=== PATIENT | female | born 1990 | race Caucasian/White ===

== ENCOUNTER 2018-05-26 18:24 | Emergency (ER) | payer OTHER ==
--- NOTE | 2018-05-26 18:53 | EDPHY ---
Addendum entered and electronically signed by Bari Comer MD 05/26/18 19: 58: EKG: Complete interpretation has been separately recorded in the [facility] archive. Summary impression: Sinus rhythm, rate 76 PHYSICIAN DOCUMENTATION: The patient was evaluated and managed by the Physician Addiction Counselor. My co- signature indicates that I have reviewed this chart and I agree with the findings and plan of care as documented. I am the secondary supervising physician. Original Note: H & P Stated Complaint: l sided cp/tightness and sob Time Seen by Provider: 05/26/18 18:45 HPI/ROS: HPI: This is a 28-year-old female who presents with Chief Complaint: l sided cp/tightness and sob Location: Left-sided chest Quality: Pain, tightness, shortness of breath Duration: 2 hr prior to arrival Signs and Symptoms: no shortness of breath at rest, no shortness of breath on exertion, no cough, + chest pain, no palpitations, no lower extremity edema, no wheezing, no orthopnea, no paroxysmal nocturnal dyspnea, no fever, no injury/ trauma, no hemoptysis, no carpal pedal spasms, + bilateral lower leg cramps Timing: Sudden onset, constant Severity: Moderate Context: Patient presents with sudden onset of left-sided chest pain that is nonradiating in nature and associated with shortness of breath. Patient reports that when she takes a deep breath in the pain is worsened. She denies any shortness of breath on exertion. She returned 2 weeks ago from a plane trip to [place]. Last week she noticed some bilateral lower extremity/calf cramping that was intermittent in nature. Denies any currently. She denies any lower extremity edema. Nonsmoker. Father has a history of DVT, PE. Did not receive influenza vaccine this year. Denies fever, cough, upper respiratory symptoms, postnasal drip, sinus pressure, headache. No history of lung disease. Modifying Factors: None Comment: ROS: A comprehensive 10 system review of systems is otherwise negative aside from elements mentioned in the history of present illness. MEDICAL/SURGICAL/SOCIAL HISTORY: Medical history: Ovarian cyst. Does not take any regular medications. Merina IUD Surgical history: Denies Social history: Nonsmoker. CONSTITUTIONAL: Slightly anxious, nontoxic-appearing, adult white female, awake and alert, no obvious distress HEENT: Atraumatic and normocephalic, PERRL, EOMI. Nares patent; no rhinorrhea; no nasal mucosal edema. Tympanic membranes clear. Oropharynx clear, no exudate and moist pink mucosa. Airway patent. No lymphadenopathy. No meningismus. Cardiovascular: Normal S1/S2, regular rate, regular rhythm, without murmur rub or gallop. PULMONARY/CHEST: Symmetrical and nontender. Clear to auscultation bilaterally. Good air movement. No accessory muscle usage. ABDOMEN: Soft, nondistended, nontender, no rebound, no guarding, no peritoneal signs, no masses or organomegaly. No CVAT. EXTREMITIES: 2/2 pulses, strength 5/5, no deformities, no clubbing, no cyanosis or edema. Negative Homans sign. NEUROLOGICAL: no focal neuro deficits. GCS 15. SKIN: Warm and dry, no erythema. no rash. Good capillary refill. Source: Patient Exam Limitations: No limitations - Personal History LMP (Females 10-55): IUD In Place Current Tetanus Diphtheria and Acellular Pertussis (TDAP): Yes - Medical/Surgical History Hx Asthma: Yes Hx Chronic Respiratory Disease: No Hx Diabetes: No Hx Cardiac Disease: No Hx Renal Disease: No Hx Cirrhosis: No Hx Alcoholism: No Hx HIV/AIDS: No Hx Splenectomy or Spleen Trauma: No Other PMH: ovarien cyst - Social History Smoking Status: Never smoked Constitutional: Initial Vital Signs Temperature (C) 36.7 C 05/26/18 18:30 Heart Rate 76 05/26/18 18:30 Respiratory Rate 18 05/26/18 18:30 Blood Pressure 125/78 H 05/26/18 18:30 O2 Sat (%) 99 05/26/18 18:30 O2 Delivery Mode Room Air Allergies/Adverse Reactions: nuts Allergy (Uncoded 12/01/10 17:20) Home Medications: Medication Instructions Recorded MIRENA 05/26/18 Medical Decision Making - Diagnostics Imaging Results: Imaging Impressions Chest X-Ray 05/26/18 19:31 Impression: No significant radiographic abnormality. Specifically, a source for chest pain is not identified. ED Course/Re-evaluation: Vital signs reviewed and stable upon arrival. No hypoxia, respiratory distress. Placed on cardiac care unit nurse. IV access, laboratory studies including D-dimer and EKG ordered EKG my read with attending shows normal sinus rhythm with a rate of 76 beats per minute with flattened T-waves but no acute ischemic changes. 1929: Labs reviewed. No signs of leukocytosis/anemia/platelet dysfunction/YAMEL/ elevated LFTs/electrolyte imbalance//VTE. 1953: Chest x-ray my read shows no opacity, no effusion, no widened mediastinum , no pneumothorax Patient reports that she does suffer from anxiety and would like a referral to a new primary care provider. Patient has no signs of pericarditis, arrhythmias, VTE. She is appropriate for discharge with outpatient follow-up. This patient was seen under the supervision of my secondary supervising physician. I evaluated care for this patient with attending. Discussed this patient with Dr. Comer. Differential Diagnosis: Shortness of breath including but not limited to pulmonary infectious process, COPD, asthma, pulmonary embolus and congestive heart failure. - Data Points Laboratory Results: Laboratory Results 05/26/18 18:44 05/26/18 18:44 05/26/18 05/26/18 05/26/18 18:44 18:44 18:44 WBC RBC Hgb Hct MCV MCH MCHC RDW Plt Count MPV Neut % (Auto) Lymph % (Auto) [place] % (Auto) Eos % (Auto) Baso % (Auto) Nucleat RBC Rel Count Absolute Neuts (auto) Absolute Lymphs (auto) Absolute Monos (auto) Absolute Eos (auto) Absolute Basos (auto) Absolute Nucleated RBC Immature Gran % Immature Gran # D-Dimer < 0.27 ug/mLFEU ug/mLFEU (0.00-0.50) Sodium 140 mEq/L mEq/L (135-145) Potassium 3.9 mEq/L mEq/L (3.5-5.2) Chloride 107 mEq/L mEq/L (97-110) Carbon Dioxide 24 mEq/l mEq/l (22-31) Anion Gap 9 mEq/L mEq/L (6-14) BUN 11 mg/dL mg/dL (7-23) Creatinine 0.8 mg/dL mg/dL (0.6-1.0) Estimated GFR > 60 Glucose 81 mg/dL mg/dL (70-100) Calcium 9.6 mg/dL mg/dL (8.5-10.4) Beta HCG, Qual NEGATIVE 05/26/18 18:44 WBC 8.64 10^3/uL 10^3/uL (3.80-9.50) RBC 4.61 10^6/uL 10^6/uL (4.18-5.33) Hgb 14.4 g/dL g/dL (12.6-16.3) Hct 41.8 % % (38.0-47.0) MCV 90.7 fL fL (81.5-99.8) MCH 31.2 pg pg (27.9-34.1) MCHC 34.4 g/dL g/dL (32.4-36.7) RDW 13.0 % % (11.5-15.2) Plt Count 231 10^3/uL 10^3/uL (150-400) MPV 11.8 fL H fL (8.7-11.7) Neut % (Auto) 51.1 % % (39.3-74.2) Lymph % (Auto) 38.3 % % (15.0-45.0) [place] % (Auto) 7.8 % % (4.5-13.0) Eos % (Auto) 2.0 % % (0.6-7.6) Baso % (Auto) 0.7 % % (0.3-1.7) Nucleat RBC Rel Count 0.0 % % (0.0-0.2) Absolute Neuts (auto) 4.42 10^3/uL 10^3/uL (1.70-6.50) Absolute Lymphs (auto) 3.31 10^3/uL H 10^3/uL (1.00-3.00) Absolute Monos (auto) 0.67 10^3/uL 10^3/uL (0.30-0.80) Absolute Eos (auto) 0.17 10^3/uL 10^3/uL (0.03-0.40) Absolute Basos (auto) 0.06 10^3/uL 10^3/uL (0.02-0.10) Absolute Nucleated RBC 0.00 10^3/uL 10^3/uL (0-0.01) Immature Gran % 0.1 % % (0.0-1.1) Immature Gran # 0.01 10^3/uL 10^3/uL (0.00-0.10) D-Dimer Sodium Potassium Chloride Carbon Dioxide Anion Gap BUN Creatinine Estimated GFR Glucose Calcium Beta HCG, Qual Medications Given: Discontinued Medications Sodium Chloride (Ns) 1,000 mls @ 0 mls/hr IV ONCE ONE; Wide Open PRN Reason: Protocol Stop: 05/26/18 18:55 Last Admin: 05/26/18 19:04 Dose: 1,000 mls Departure - Departure Disposition: Home, Routine, Self-Care Clinical Impression: Atypical chest pain Condition: Good Instructions: Noncardiac Chest Pain (ED) Additional Instructions: Please refrain from caffeine or tobacco use. Consume a minimum of 8-10 glasses of water or electrolyte fluid replacement drinks that include Gatorade, Powerade, Pedialyte. Please limit the amount of stress that you feel and practice stress reducing techniques like meditation, exercise. Establish care with primary care provider and follow up within the next 5-7 days. Return to the ER immediately if you experience new, continued or worsened chest pain, chest pain that radiates, chest pain accompanied by exertion or associated with shortness of breath, sweating, nausea, dizziness, back pain, or any other symptoms that concern you. Referrals: Kiya Arreguin MD [Medical Doctor] - As per Instructions
[2018-05-26] MEDS ORDERED: NS 1,000 ML IV ONE (18:54)
[2018-05-26 19:07] LABS: PLATELET COUNT 231 10^3/uL (150-400)
--- NOTE | 2018-05-26 20:00 | CPEKG ---
Test Reason : OPEN Blood Pressure : / mmHG Vent. Rate : 076 BPM Atrial Rate : 074 BPM P-R Int : 132 ms QRS Dur : 083 ms QT Int : 411 ms P-R-T Axes : 070 047 029 degrees QTc Int : 463 ms Sinus rhythm Confirmed by Bari Comer ([id number]) on 05/26/2018 8:00:04 PM Referred By: PHYSICIAN ED Confirmed By:Bari Comer
[2018-05-26 20:10] VITALS: BP 115/78
== END 2018-05-26 20:10 | disposition home or self-care (01) ==
DX: R07.89 Other chest pain (principal); R06.02 Shortness of breath; E86.9 Volume depletion, unspecified